=== PATIENT | female | born 1955 | race Caucasian/White ===

== ENCOUNTER → 2023-09-07 | Outpatient (REF) | payer OTHER ==
[2023-09-07 12:46] LABS: C REACTIVE PROTEIN QUANTITATIV < 0.40 MG/DL (<1.0)
[2023-09-07 12:47] LABS: CPK CREATINE PHOSPHOKINASE 55 U/L (34-145); IRON (FE) 97 UG/DL (50-170); MAGNESIUM LEVEL 1.9 MG/DL (1.8-2.4); PERCENT SATURATION 29.2 % (13.2-45.0); PHOSPHORUS LEVEL 4.1 MG/DL (2.4-5.1); TOTAL IRON BINDING CAPACITY 332 UG/DL (250-425)
[2023-09-07 12:48] LABS: TOTAL 25(OH) VITAMIN D 51.7 NG/ML (20.0-100.0)
[2023-09-07 12:50] LABS: VITAMIN B12 LEVEL 939 PG/ML (211-911)
== END ==
LOC: M SFHCRHEU 10:47
PROVIDERS: ATTEND Internal Medicine
DX: M79.7 Fibromyalgia (principal); M25.50 Pain in unspecified joint; Z79.899 Other long term (current) drug therapy

== ENCOUNTER → 2023-09-07 | Outpatient (CLI) | payer OTHER | LOC: M RAD 11:11 | PROVIDERS: ATTEND Internal Medicine | DX: M25.78 Osteophyte, vertebrae (principal); M19.011 Primary osteoarthritis, right shoulder; M19.012 Primary osteoarthritis, left shoulder ==

== ENCOUNTER → 2024-02-26 | Outpatient (CLI) | payer OTHER | LOC: M PLAIMG 13:58 | PROVIDERS: ATTEND Internal Medicine | DX: M67.833 Other specified disorders of tendon, right wrist (principal); M19.041 Primary osteoarthritis, right hand; M19.042 Primary osteoarthritis, left hand; M67.844 Other specified disorders of tendon, left hand ==